=== PATIENT | female | born 1945 | race African-American/Black ===

== ENCOUNTER 2017-04-27 08:22 | Inpatient (IN) ==
[2017-04-27] MEDS ORDERED: NALOXONE 0.4 MG/ML VIAL IV STA (08:50)
--- NOTE | 2017-04-27 09:06 | Emergency Department Note ---
Arsalan Sams Mantricia, am scribing for, and in the presence of, Jus Cadet MD 08:57. Chichi Sams James D, MD, personally performed the services described in this documentation, ascribed by Mandie Arriaza in my presence, and it is both accurate and complete [id number] . Arrival - Arrival Chief Complaint: Altered Mental Status ED Nursing Triage Note: PER FAMILY PT JUST SLEEPING ALOT AND TALKING OUT OF HER HEAD, PT HAS ENDOMETRIAL CANCER WITH METS, SEEN YESTERDAY FOR RECTAL PAIN, FAMILY MEMBERS GIVING PT PAIN MEDS, PT HAS NORCO 10MG, FAMILY GIVING TWO AT A TIME. PT AWAKE, DROWSY, ANSWERS SOME QUESTIONS APPROPRIATELY. PT DENIES HAVING PAIN. Mode of Arrival: Stretcher Limitations: No Limitations Source: Family, RN Notes Reviewed Time Seen by Provider: 04/27/17 08:43 - History of Present Illness HPI Narrative: Pt is a 71 y/o black female carried to ED by EMS with c/o AMS that onset Wednesday evening. Pt was previously prescribed Northwood. Daughter states that pt was seen yesterday for hemorrhoids and she gave pt two of the previously prescribed Northwood 10mg for her pain. She states that since then, pt has been talking out her head and this has never happened before. Pt has a PMHx of endometrial cancer , HTN, and DM. Daughter reports that pt goes through parencentesis every two weeks. Pt is uncooperative at time of exam. No other complaints are reported to ED. P Onset (ago): day(s) Consistency: constant Severity: mild Allergies/Adverse Reactions: Allergies Allergy/AdvReac Type Severity Reaction Status Date / Time Penicillins Allergy Mild RASH Verified 04/27/17 08:38 Home Medications: Home Medications Medication Instructions Recorded Confirmed Type Lisinopril [Prinivil] 10 mg PO DAILY 03/19/15 04/26/17 History glyBURIDE/METFORMIN 5-500 1 tablet PO BID W/MEALS PRN 03/19/15 04/26/17 History [Glucovance 5-500] Anastrozole 1 mg PO DAILY 10/23/16 04/26/17 History Furosemide Tab [Lasix Tab] 80 mg PO DAILY 10/23/16 04/26/17 History HYDROcodone/ACETAMIN 10-325 [Northwood 1 tablet PO Q4H PRN 10/23/16 04/26/17 History 10-325] Nebivolol HCl [Bystolic] 2.5 mg PO DAILY 12/20/16 04/26/17 History Hydrocortisone [Hydrocortisone 100 mg RECTAL DAILY 04/26/17 04/26/17 History Enema] Pramoxine/Hc Rectal Foam 1 applic RECTAL TID #10 gm 04/26/17 Rx [Proctofoam HC Rectal Foam] Review of System - Review of System 12 point system: reviewed and no additional remarkable complaints except as stated - Review of System Constitutional: Present: other (AMS) Eyes: Absent: discharge, pain Head/Ears/Nose/Throat: Absent: earache, epistaxis Respiratory: Absent: cough, respiratory distress, wheezing Cardiovascular: Absent: chest pain, palpitations Gastrointestinal: Absent: abdominal pain, nausea, vomiting, diarrhea Genitourinary female: Absent: abnormal menses, dysuria Musculoskeletal: Absent: arm pain, back pain, leg pain, neck pain Skin: Absent: rash, lesions Neurological: Absent: headache, weakness Psychiatric: Absent: anxiety, depression Medical,Surgical,& Family Hx - Medical History Cardio: History of: CHF, Hypertension, Cardiovascular Problems Psychological: History of: Depression Neurology: No history of: Seizures HEENT: History of: Eye Problem (GLASSES), HEENT Problems (SINUS) Endocrine: History of: Diabetes Mellitus (NIDDM) Respiratory: History of: Respiratory Problems (heart failure) Gastrointestinal: History of: Diverticulitis/ Diverticulosis, GERD, Hemorrhoids , Liver Problems, 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 CORADO), Miscellaneous Medical Problems (MEDIPORT TO BE PLACED 03/20/15 RT) - Surgical History Cardiac Surgeries: Patient Denies: Femoral-Popliteal Bypass Graft, Cardiac Catheterization, Cardiac Surgery, Carotid Endarterectomy, Internal Defibrillator, Vascular Access Devices Thoracic Surgeries: Patient denies;: Lobectomy HEENT Surgeries: Patient denies: Carotid Endarterectomy, Eye Surgery, Tonsilectomy & Adenoidectomy Abdominal Surgeries: Surgical HX of: Abdominal Surgery (PARTIAL REMOVAL SMALL INTESTINES 02/12/15), Colonoscopy Patient denies: Splenectomy Reproductive Surgeries: Surgical HX of;: Hysterectomy (FEBRUARY 2012), Tubal Ligation - Family History Family History: Reports;: Family Cancer (BROTHER), Family Diabetes (MOTHER/ FATHER), Family Hypertension (PARENTS) - Social History Smoking Status: Unknown if ever smoked Exam Vital Signs: Vital Signs Temperature 98.1 F 04/27/17 09:11 Pulse Rate 88 04/27/17 09:11 Respiratory Rate 14 04/27/17 09:11 Blood Pressure 102/46 04/27/17 09:11 O2 Sat by Pulse Oximetry 100 04/27/17 08:24 - General Exam limited due to: uncooperative General appearance: alert, in no apparent distress - Head Head exam: Present: atraumatic, normocephalic, normal inspection - Eye Eye exam: Present: normal appearance, PERRL, EOMI - ENT ENT exam: Present: normal exam, normal oropharynx, mucous membranes moist, TM's normal bilaterally, normal external ear exam - Neck Neck exam: Present: normal inspection, full ROM, trachea midline. Absent: tenderness - Chest Chest inspection: Present: normal inspection, symmetric chest wall rise. Absent : tenderness - Respiratory Respiratory exam: Present: normal lung sounds bilaterally - Cardiovascular Cardiovascular exam: Present: regular rate, normal rhythm, normal heart sounds - Abdominal Exam Abdominal exam: Present: soft, normal bowel sounds. Absent: distention, tenderness, guarding, rebound - Extremities Exam Extremities exam: Present: normal inspection, full ROM, normal capillary refill , pedal edema. Absent: tenderness - Back Exam Back exam: Present: normal inspection, full ROM. Absent: tenderness - Neurological Exam Neurological exam: Present: oriented X3, CN II-XII intact, normal gait, reflexes normal - Psychiatric Psychiatric exam: Present: normal affect, normal mood - Skin Skin exam: Present: warm, dry, intact, normal color Course - Consultations Consultation #1: Discussed with hospitalist. Patient will be admitted to their service. Time: 10:15 Results - Labs CBC & BMP: 04/27/17 09:07 04/27/17 09:07 Lab Results: I have reviewed the patients labs Labs: Laboratory Tests 04/27/17 04/27/17 04/27/17 09:07 09:07 09:07 WBC 7.9 Hgb 8.3 L Hct 25.5 L Plt Count 329 Sodium 141 Potassium 4.0 Chloride 108 H Carbon Dioxide 20 L Anion Gap 17.0 H BUN 60 H Creatinine 2.60 H BUN/Creatinine Ratio 23.00 H Calcium 7.4 L Total Bilirubin 2.90 H AST 110 H ALT 70 H Alkaline Phosphatase 991 H Ammonia 115 H Total Protein 5.1 L Albumin 1.9 L Globulin 3.2 Albumin/Globulin Ratio 0.5 L Urine pH 5.0 Ur Specific Ida 1.011 Urine RBC 2 Urine WBC 1 Urine Opiates Screen Ur Barbiturates Screen Ur Phencyclidine Scrn U Amphetamine/Methamph U Benzodiazepines Scrn U Cocaine Metab Screen U Cannabinoids Screen 04/27/17 09:07 WBC Hgb Hct Plt Count Sodium Potassium Chloride Carbon Dioxide Anion Gap BUN Creatinine BUN/Creatinine Ratio Calcium Total Bilirubin AST ALT Alkaline Phosphatase Ammonia Total Protein Albumin Globulin Albumin/Globulin Ratio Urine pH Ur Specific Ida Urine RBC Urine WBC Urine Opiates Screen Positive H Ur Barbiturates Screen Negative Ur Phencyclidine Scrn Negative U Amphetamine/Methamph Negative U Benzodiazepines Scrn Negative U Cocaine Metab Screen Negative U Cannabinoids Screen Negative - Diagnostic Findings Procedure: CT: image reviewed by me, report reviewed by me (CT head: No acute intracranial lesion or hemorrhage.) Disposition Clinical Impression: Hepatic encephalopathy Case discussed with: patient Disposition: Still a Patient Condition: Stable Time of Disposition: 10:10
[2017-04-27] MEDS ORDERED: NALOXONE 0.4 MG/ML VIAL ONE (09:13)
[2017-04-27 09:22] LABS: Apearance,Urine CLEAR (Clear); Bacteria,Urine Occasional /HPF (Few); Bilirubin,Urine Negative (Negative); Blood, Urine Negative (Negative); Eosinophils % 0.3 % (0.00-10.9); Glucose,Urine (UA) Negative (Negative); Hematocrit 25.5 VOL% (35.7-47.0); Hemoglobin 8.3 GM/DL (12.0-16.0); Hyaline Casts,Urine 6 /LPF (0-3); Immature Granulocytes % 1.3 %; Ketones,Urine Negative (Negative); Lymphocytes # 1.1 10*3/uL (1.4-4.0); Lymphocytes % 14.5 % (21.3-54.2); Mean Corpuscular HGB Conc 32.5 GM/DL (32-36); Mean Corpuscular Hemoglobin 24 PG (27-34); Mean Corpuscular Volume 74.3 FL (87-102); Mean Platelet Volume 9.1 FL (9.6-12.0); Monocytes # 0.7 10*3/uL (0.11-0.8); Mucus,Urine Occasional /LPF (Occasional); Neutrophils # 5.9 10*3/uL (1.4-7.4); Neutrophils % 74.9 % (38.7-73.9); Nitrite,Urine Negative (Negative); Platelet Count 329 T/CUMM (130-400); Protein,Urine Negative; RBC,Urine 2 /HPF (0-4); Red Blood Count 3.43 MC/CUMM (3.8-5.5); Red Cell Distribution Width 23.5 % (9.3-17.3); Squamous Epithelial Cell,Urine Occasional /HPF (0-10); Urine Color Yellow (Yellow); Urine Specific Gravity 1.011 (1.001-1.035); WBC,Urine 1 /HPF (0-6); White Blood Count 7.9 T/CUMM (4-12)
[2017-04-27 09:29] LABS: Barbiturates Screen,Urine Negative (Negative); Benzodiazepines Screen,Urine Negative (Negative); Cannabinoid Screen,Urine Negative (Negative); Opiate Screen,Urine Positive (Negative); Phencyclidine Screen,Urine Negative (Negative)
--- NOTE | 2017-04-27 09:47 | CT Report ---
CT head/brain wo con Indication: Altered level of consciousness Comparison: None Technique: Multiple axial tomographic images of the brain were obtained without the use of intravenous contrast. Findings: Midline structures are nondisplaced. Moderate global volume loss. Mild periventricular and subcortical hypoattenuation noted which is nonspecific but consistent with chronic microvascular ischemic change. There is no evidence of acute intracranial hemorrhage or hydrocephalus. Atherosclerotic calcifications demonstrated. Senescent mineralization of the right lentiform nucleus, unchanged. The visualized paranasal sinuses and bilateral mastoid air cells are clear. Study somewhat limited secondary to motion. IMPRESSION: Limited exam without convincing CT evidence of acute intracranial abnormality. The CT exam was performed using one or more of the following dose reduction techniques: Automated exposure control, adjustment of the mA and/or kV according to patient size, or use of iterative reconstruction technique. PROCEDURE INTERPRETED AT [facility] DEPARTMENT OF RADIOLOGY Final Report Signed by: Dr Cj Menon
[2017-04-27 09:58] LABS: Albumin 1.9 G/DL (3.4-5.0); Bilirubin,Total 2.9 MG/DL (0.2-1.0); Calcium 7.4 MG/DL (8.5-10.1); Osmolality,Calculated 297.3 MOS/KG (273-304); Total Protein 5.1 G/DL (6.4-8.3)
[2017-04-27 10:03] LABS: Acanthocytes 1+; Hypochromasia 2+; Microcytosis 1+; Target Cells 1+
[2017-04-27] MEDS ORDERED: MORPHINE 2 MG/1 ML SYRINGE IV PRN (10:53)
[2017-04-27] MEDS ORDERED: ONDANSETRON 4 MG/2 ML VIAL IV PRN (10:53)
[2017-04-27] MEDS ORDERED: LACTULOSE 20 GM/30 ML UDCUP PO SCH (11:00)
[2017-04-27] MEDS ORDERED: GLUCAGON 1 MG VIAL IM PRN (11:01)
[2017-04-27] MEDS ORDERED: DEXTROSE 50% 25 GM/50 ML VIAL IV PRN (11:01)
--- NOTE | 2017-04-27 11:02 | Hospitalist History & Physical ---
<Liliana Kennedy - Last Filed: 04/27/17 10:59> Assessment and Plan - Time spent with patient Time spent with patient: Greater than 30 minutes (1) Hypotension Status: Acute Assessment and plan: 71-year-old -Filipino female with history of hypertension, diabetes, endometrial cancer with metastases to the liver and colon admitted by the hospitalist service with hepatic encephalopathy 2 days. Patient is lethargic and agitated when awakened. Will admit her to the oncology floor per Dr. Torres. We will give her lactulose for elevated ammonia levels, make her n.p.o. until she awakens fully, will gently hydrate her for her dehydration but will have to watch her fluid levels due to her CHF. Am holding her pain medicines and her p.o. medicines until she fully awakens. She is hypotensive at this time so I am holding her blood pressure medicines as well. Will hold her Lasix as well until her kidney function improves from her dehydration. Also put her on sliding scale insulin for her diabetes management. Will consult social studies department chair for possible hospice and/or home health discussion with family. This is all been discussed with Dr. Torres. She will see and examined patient and further recommendations to follow. Current Visit: Yes (2) Endometrial cancer with metastases Status: Acute Current Visit: Yes (3) Ascites of liver Status: Acute Current Visit: Yes (4) Acute renal injury due to hypovolemia Status: Acute Current Visit: Yes (5) Elevated liver enzymes Status: Acute Current Visit: Yes (6) Patient is Anglican Status: Acute Current Visit: No (7) Anemia Status: Acute Current Visit: No (8) Diabetes mellitus Status: Acute Current Visit: No (9) Hemorrhoids Status: Acute Current Visit: No (10) Hepatic encephalopathy Status: Acute Current Visit: Yes History of Present Illness Chief complaint: Altered mental status History of present illness: Ms. Aparicio is a 71 year old Anglican female with history of diastolic heart failure, diabetes, endometrial cancer with metastases to the liver and colon, and hypertension presenting to the ED by her daughters with a 2 day history of progressive confusion. Daughter states she started acting sleepy and talking out of her head starting on Wednesday. She had complaints of pain from her hemorrhoids and she was given some Iliff yesterday around 1:00 and they state she has not been the same since. She received Narcan in the ED which did nothing to help with her mental status. Daughter states she normally walks with a walker, cooks and cleans for herself and is normally conversive. She has not eaten or drank anything since Wednesday morning. She is undergoing chemo with p.o. medicines. Dr. Corado follows her monthly and she has a [employer] oncologist in [place] that follows her as well. Dr. Garcia's nurse practitioner is her PCP. She has not seen a pharmacy consultant. Upon exam patient is sleepy and gets agitated when awakened. She will not answer questions and will not follow commands. Daughter states this is highly unusual for her. Her blood pressure is low with systolic in the 70s and her heart rate is within normal limits. Harrison was placed in the ED and her urine is dark with low urine output. Her white count is normal, H&H 8.3/25.5, platelets are normal, creatinine is elevated at 2.6. Her creatinine was normal with her last admission in November. Patient's liver enzymes are elevated with her bilirubin at 2.9, alkaline phosphatase elevated at 991, her ammonia level is 115, and her UA is negative for infection. These were all normal in November. She does have positive opiates in her toxicology screen but this is normal for her prescription Iliff from yesterday. Patient does undergo paracentesis about every 2 weeks by interventional radiology. Her last one was done on 04/22/[address] Duckworth obtained a total of 6800 cc of serosanguineous ascites. After discussion with Dr. Cadet and Dr. Torres, it was agreed patient would be admitted for further evaluation and treatment. Home Medications Medication Instructions Recorded Confirmed Type RX: Lisinopril [Prinivil] 10 mg PO DAILY 03/19/15 04/27/17 History RX: glyBURIDE/METFORMIN 5-500 1 tablet PO BID W/MEALS PRN 03/19/15 04/27/17 History [Glucovance 5-500] RX: Anastrozole 1 mg PO DAILY 10/23/16 04/27/17 History RX: Furosemide Tab [Lasix Tab] 80 mg PO DAILY 10/23/16 04/27/17 History RX: HYDROcodone/ACETAMIN 10-325 1 tablet PO Q4H PRN 10/23/16 04/27/17 History [Iliff 10-325] RX: Nebivolol HCl [Bystolic] 2.5 mg PO DAILY 12/20/16 04/27/17 History Hydrocortisone [Hydrocortisone 100 mg RECTAL DAILY 04/26/17 04/27/17 History Enema] Pramoxine/Hc Rectal Foam 1 applic RECTAL TID #10 gm 04/26/17 04/27/17 Rx [Proctofoam HC Rectal Foam] Allergies Allergy/AdvReac Type Severity Reaction Status Date / Time Penicillins Allergy Mild RASH Verified 04/27/17 08:38 Medical,Surgical,& Family Hx - Medical History Cardio: History of: CHF, Hypertension, Cardiovascular Problems Psychological: History of: Depression Neurology: No history of: Seizures HEENT: History of: Eye Problem (GLASSES), HEENT Problems (SINUS) Endocrine: History of: Diabetes Mellitus (NIDDM) Respiratory: History of: Respiratory Problems (heart failure) Gastrointestinal: History of: Diverticulitis/ Diverticulosis, GERD, Hemorrhoids , Liver Problems, Gastrointestinal Cancer (RECURRENCE FROM UTERINE CA) Musculoskeletal: History of: Musculoskeletal Problems (ARTHRITIS) Hematology: History of: Anemia Comment Only: Blood Transfusion Reaction (JEHOVAH WITNESS) Reproductive: History of: Reproductive Cancer (2011) Other: History of: Cancer (TO START CHEMO ONCE MEDIPORT PLACED-DR. CORADO), Miscellaneous Medical Problems (MEDIPORT TO BE PLACED 03/20/15 RT) - Surgical History Cardiac Surgeries: Patient Denies: Femoral-Popliteal Bypass Graft, Cardiac Catheterization, Cardiac Surgery, Carotid Endarterectomy, Internal Defibrillator, Vascular Access Devices Thoracic Surgeries: Patient denies;: Lobectomy HEENT Surgeries: Patient denies: Carotid Endarterectomy, Eye Surgery, Tonsilectomy & Adenoidectomy Abdominal Surgeries: Surgical HX of: Abdominal Surgery (PARTIAL REMOVAL SMALL INTESTINES 02/12/15), Colonoscopy Patient denies: Splenectomy Reproductive Surgeries: Surgical HX of;: Hysterectomy (FEBRUARY 2012), Tubal Ligation - Family History Family History: Reports;: Family Cancer (BROTHER), Family Diabetes (MOTHER/ FATHER), Family Hypertension (PARENTS) - Social History Smoking Status: Never smoker Frequency of Alcohol Use: None Type of Drug Use: None Marital Status: Single Lives With:: Children Functional capacity: uses cane/walker ROS unobtainable: due to encephalopathy Exam - Constitutional Vitals: Period Temp Pulse Resp BP Sys/Golden Pulse Ox Last 24 Hr 98.1 F-98.1 F 88-88 14-14 102-102/46-46 100 Exam: Constitutional System: No distress. [No] tremulousness. Head: Normocephalic, atraumatic. Ears, Nose and Throat System: No evidence of Otitis or Mastoiditis. No epistaxis or discharge Eyes System: Pupils equal, round, and reactive. Extraocular muscles intact. Neck: Supple, without adenopathy, [No] jugular venous distention. No thyromegaly , neck mass, or prior surgery apparent. Respiratory System: Chest [clear] to auscultation. Cardiovascular System: Heart with [regular] rate and rhythm. [No] murmur. GI System: Abdomen [soft], [non]tender. [Normo]active bowel sounds present. Musculoskeletal System: limbs with +3 pedal edema. Unable to obtain distal pulses due to edema. Neurological System: [No discernable] sensory deficit. [No] aphasia Psychiatric System: Conversation is limited. Patient is agitated when awakened Results - Labs CBC & BMP: 04/27/17 09:07 04/27/17 09:07 Lab Results: I have reviewed the past 24 hour labs - Diagnostic Findings Procedure: CT: report reviewed by me (Head CT was limited but there is no evidence of acute intracranial abnormality) <Seamus Torres - Last Filed: 04/27/17 14:04> Assessment and Plan - Time spent with patient Time spent with patient: Less than 30 minutes History of Present Illness History of present illness: Patient seen and examined independently of JUSTIN Kennedy, agree with history, assessment and plan as documented. 71 y/o AAF with endometrial cancer with mets to liver and colon presents with encephalopathy. Per records she is taking anastrozole. Family reports that she has not eaten since Wednesday. In the ED found to have elevated ammonia with elevated liver enzymes. Possible that this is progression of disease but will work up her liver disease for other causes. Will check acetaminophen, hepatitis panel and liver ultrasound. Will start lactulose. Patient also with JG, creatinine was normal in November. Very possible that this is due to dehydration, but cannot quite rule out hepatorenal syndrome. Possible history of chf, will order echo. Will hydrate gently for now. Will consult oncology for any possible assistance. Exam - Constitutional Vitals: Period Temp Pulse Resp BP Sys/Golden Pulse Ox Last 24 Hr 98.1 F-98.1 F 88-88 14-14 102-102/46-46 100 Results - Labs CBC & BMP: 04/27/17 09:07 04/27/17 09:07
[2017-04-27] MEDS ORDERED: HYDROCORTISONE ENEMA 100 MG/60 ML BOTTLE RECTAL SCH (12:27)
[2017-04-27] MEDS: PANTOPRAZOLE 40 MG VIAL IV SCH (13:35)
[2017-04-27] MEDS: SODIUM CHLORIDE 0.9% 1,000 ML IV SCH ×2 (13:36→20:00)
[2017-04-27] MEDS: ENOXAPARIN 30 MG/0.3 ML SYRINGE SUBCUT SCH (13:36)
--- NOTE | 2017-04-27 14:53 | Ultrasound Report ---
US liver Indication: Liver disease. No other history provided. Comparison: None. Technique: Using transcutaneous probe, ultrasound imaging of the right upper quadrant was performed. Ultrasound images were captured and stored. Imaged structures include the liver, gallbladder, pancreas, right kidney, aorta, and inferior vena cava. Findings: Moderate amount ascites is demonstrated. There appears to be color flow within interrogated portal and hepatic venous systems. The liver appears small in size and demonstrates a nodular margin as well as heterogeneous pattern of echotexture. Right kidney measures 10.1 cm in craniocaudal dimension. There are structures imaged they have central hypoechoic echotexture with measurements up to 9.1 cm total size and surrounding wall. These possibly represent fluid-filled loops of bowel as there is some hypoechoic annular echotexture within the imaged wall. Pancreas is not identified. Aorta and inferior vena cava are not identified. Gallbladder is not identified. Impression: 1. Liver is small in size with sclerotic features and possible cavernous transformation of the portal vein. Some presence of color flow is suggested. 2. Masses within or posterior to the liver cannot be excluded. CT liver mass protocol is recommended for further evaluation. 3. Moderate to large amount of ascites. 04/27/2017 2:38 PM PROCEDURE INTERPRETED AT [facility] DEPARTMENT OF RADIOLOGY Final Report Signed by: Dr. Rommel Geronimo
[2017-04-27 15:01] LABS: % Iron Saturation 33.8 % (18-50); Ferritin 1987.1 ng/ml (8-252)
[2017-04-27] MEDS: LACTULOSE 160 GM/240 ML BOTTLE RECTAL SCH ×3 (15:23→22:26)
[2017-04-27 15:48] LABS: Hepatitis A Ab IgM Quant 0.03 Index; Hepatitis A Ab IgM Result Negative (Negative); Hepatitis B Core IgM Quant 0.18 Index; Hepatitis B Core IgM Result Negative (Negative); Hepatitis B Surface Ag Quant < 0.10 Index; Hepatitis B Surface Ag Result Negative (Negative); Hepatitis C Virus Ab Quant 0.27 Index; Hepatitis C Virus Ab Result Negative (Negative)
[2017-04-27 15:56] LABS: INR 1.1; PT Patient Result 11.3 SECS
[2017-04-27] MEDS: INSULIN LISPRO 100 UNIT/ML SUBCUT SCH (15:59)
[2017-04-27] MEDS: PRAMOXINE/HYDROCORTISONE RECTAL FOAM 10 GM CAN RECTAL SCH ×2 (16:02→22:49)
--- NOTE | 2017-04-27 17:07 | ECHO Report ---
Ron Aparicio 04/27/2017 Exam Date: 14:26 Referring Physician: Lyssa Seay Technologist: ALLYSSA Age: 71 Ht (in): 66 Wt (lb): 207 FExam Location: [facility] Gender: Echo [id number]: colon, Confusion, Ascites of liver, Acute liver injury, Hepatic encephalopathy, Lethargic, Agitated, Anemia, NIDDM, Elevated liver enzymes BP: 156 / 62 HR: 78 SinusRhythm: goodTechnical Quality: IMPRESSIONS Left ventricular ejection fraction is estimated at 65 %. There is no regional wall motion abnormality. Grade I diastolic dysfunction. Tricuspid regurgitation velocities suggest a RVSP of 45 mmHg. MEASUREMENTS (Male / Female) Normal Values 2D ECHO LV Diastolic Diameter PLAX 4.3 cm 4.2 - 5.9 / 3.9 - 5.3 cm LV Systolic Diameter PLAX 2.8 cm LV Fractional Shortening PLAX 34.5 % IVS Diastolic Thickness 1.0 cm 0.6 - 1.0 / 0.6 - 0.9 cm LVPW Diastolic Thickness 1.0 cm 0.6 - 1.0 / 0.6 - 0.9 cm RV Internal Dim ED PLAX 2.9 cm Aortic Root Diameter 2.6 cm LA Systolic Diameter LX 4.6 cm 3.0 - 4.0 / 2.7 - 3.8 cm DOPPLER TR Peak Velocity 334.0 cm/s TR Peak Gradient 44.6 mmHg FINDINGS Left Ventricle Normal left ventricular cavity size. Normal left ventricular wall thickness. Left ventricular ejection fraction is estimated at 65 %. There is no regional wall motion abnormality. Grade I diastolic dysfunction. Right Ventricle The right ventricle is normal in size and function. Right Atrium The right atrium is mildly enlarged. Left Atrium The left atrium is mildly enlarged. Mitral Valve Morphologically normal mitral valve. Trace to mild mitral valve regurgitation. Aortic Valve Mild aortic valve sclerosis. No aortic valve stenosis. Trace aortic valve regurgitation. Tricuspid Valve Morphologically normal tricuspid valve. Trace to mild tricuspid valve regurgitation. Tricuspid regurgitation velocities suggest a RVSP of 45 mmHg. Pulmonic Valve Morphologically normal pulmonic valve. Trace pulmonary valve regurgitation. Pericardium Normal pericardium without effusion. Aorta Normal ascending aorta dimension. Brittney Miranda (Electronically Signed) 27 Apr 2017 17:06Final Date:
[2017-04-27] MEDS: LACTULOSE 20 GM/30 ML UDCUP PO PRN (18:55)
[2017-04-27] MEDS: HYDROCORTISONE 2.5% RECTAL CREAM 30 GM TUBE TOP PRN (23:00)
[2017-04-28] MEDS: SODIUM CHLORIDE 0.9% 1,000 ML IV SCH ×3 (04:00→23:55)
[2017-04-28] MEDS: LACTULOSE 160 GM/240 ML BOTTLE RECTAL SCH ×6 (04:00→22:02)
[2017-04-28] MEDS: INSULIN LISPRO 100 UNIT/ML SUBCUT SCH ×2 (08:22→17:06)
--- NOTE | 2017-04-28 09:32 | Gastrointestinal Consult Note ---
<ConstantinegirmaMelinda Jennifer - Last Filed: 04/28/17 09:21> Assessment and Plan (1) Elevated liver enzymes Status: Acute Assessment and plan: 04/28-changes in baseline mental status 3 days ago with increased agitation and somnolence. History of endometrial cancer with metastasis to liver per history. Findings of elevated LFTs and ammonia level. Negative hepatitis panel. Liver ultrasound findings noted. Plan an addendum to followed by Dr. Vasquez. Current Visit: Yes History of Present Illness Chief complaint: Altered mental status History of present illness: Ms. Aparicio is a 71 year old female who was admitted to the hospital on yesterday with reports of altered mental status. Patient is unable to provide any history however family is at bedside and assist in history taking. Information also obtained from chart review. Patient has a prior history of heart failure, diabetes mellitus, and hypertension. Patient is reported to be in her usual state of health, in which she was reported to ambulate independently, cook and clean for herself on a regular basis, until Wednesday afternoon when family noticed that she was becoming more somnolent and somewhat confused from her baseline. Patient has been complaining of pain related to her hemorrhoids and the family gave her 210 mg Normangee does for the pain at that time. Does state that several hours after giving her the medication she began becoming more confused and agitated. She was also noted to be increasingly somnolent and difficult to arouse at times. She has a history of endometrial cancer which went into remission in the past however she had a reoccurrence with also findings of liver metastasis per daughter. Patient is followed by Dr. Pa in [place] for this and takes oral chemotherapy. Family states that patient has been noted to have some weight loss over the last several weeks to months however they are uncertain as to how much. On admission, patient was found to be hypotensive as well as with elevated liver enzymes and ammonia level. Patient was last seen in November by Dr. Vasquez after admission far GI bleeding. At that time her liver enzymes were noted to be unremarkable. 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 She also had a small bowel follow-through with findings of ascites. 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 Patient's last paracentesis was noted to be last week with 6800 cc removed. She is noted to have had a total of 4 paracentesis since January of this year. Ammonia level on admission noted at 115, bilirubin 2.9, AST 110, ALT 70, alkaline phosphatase 91. Iron studies also noted with iron 52, TIBC 154 , saturation 33.8, and ferritin 1987. INR is 1.1. Hemoglobin 8.3. Hepatitis panel is negative. Patient is a Religion. Home Medications Medication Instructions Recorded Confirmed Type Anastrozole 1 mg PO DAILY 10/23/16 04/27/17 History Furosemide Tab [Lasix Tab] 80 mg PO DAILY 10/23/16 04/27/17 History HYDROcodone/ACETAMIN 10-325 [Normangee 1 - 2 tablet PO Q4H PRN 10/23/16 04/27/17 History 10-325] Nebivolol HCl [Bystolic] 2.5 mg PO DAILY 12/20/16 04/27/17 History Pramoxine/Hc Rectal Foam 1 applic RECTAL TID #10 gm 04/26/17 04/27/17 Rx [Proctofoam HC Rectal Foam] Allergies Allergy/AdvReac Type Severity Reaction Status Date / Time Penicillins Allergy Mild RASH Verified 04/27/17 08:38 Medical,Surgical,& Family Hx - Medical History Cardio: History of: CHF, Hypertension, Cardiovascular Problems Psychological: History of: Depression Neurology: No history of: Seizures HEENT: History of: Eye Problem (GLASSES), HEENT Problems (SINUS) Endocrine: History of: Diabetes Mellitus (NIDDM) Respiratory: History of: Respiratory Problems (heart failure) Gastrointestinal: History of: Diverticulitis/ Diverticulosis, GERD, Hemorrhoids , Liver Problems, 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 PA), Miscellaneous Medical Problems (MEDIPORT TO BE PLACED 03/20/15 RT) - Surgical History Cardiac Surgeries: Patient Denies: Femoral-Popliteal Bypass Graft, Cardiac Catheterization, Cardiac Surgery, Carotid Endarterectomy, Internal Defibrillator, Vascular Access Devices Thoracic Surgeries: Patient denies;: Lobectomy HEENT Surgeries: Patient denies: Carotid Endarterectomy, Eye Surgery, Tonsilectomy & Adenoidectomy Abdominal Surgeries: Surgical HX of: Abdominal Surgery (PARTIAL REMOVAL SMALL INTESTINES 02/12/15), Colonoscopy Patient denies: Splenectomy Reproductive Surgeries: Surgical HX of;: Hysterectomy (FEBRUARY 2012), Tubal Ligation - Family History Family History: Reports;: Family Cancer (BROTHER), Family Diabetes (MOTHER/ FATHER), Family Hypertension (PARENTS) - Social History Smoking Status: Never smoker Frequency of Alcohol Use: None Type of Drug Use: None ROS unobtainable: due to mental status - Constitutional Constitutional: Present: weight loss Exam - Constitutional Vitals: Period Temp Pulse Resp BP Sys/Golden Pulse Ox Last 24 Hr 96.8 F-98.2 F 72-96 18-22 104-156/51-68 93-100 General appearance: normal weight, no acute distress - Head Head exam: Present: normal inspection, normocephalic - Eye Eye exam: Present: other (Lids and conjunctive are unremarkable). Absent: scleral icterus - ENT ENT exam: Present: normal exam, normal oropharynx - Neck Neck exam: Present: normal inspection - Respiratory Respiratory exam: Present: clear to auscultation bilaterally. Absent: rales, rhonchi, wheezes - Cardiovascular Cardiovascular exam: Present: regular rate and rhythm. Absent: diastolic murmur , JVD, systolic murmur - GI/Abdominal GI/Abdominal exam: Present: normal bowel sounds, ascites, soft. Absent: distended, mass, organomegaly, tenderness - Extremities Exam Extremities exam: Present: normal inspection, full ROM - Back Exam Back exam: Present: normal inspection - Neurological Exam Neurological exam: Present: alert, oriented X3 - Psychiatric Psychiatric exam: Present: normal affect, normal mood - Skin Skin exam: Present: normal color, warm, dry Results - Labs CBC & BMP: 04/27/17 09:07 04/27/17 09:07 Lab Results: I have reviewed the past 24 hour labs <Lv Vasquez - Last Filed: 04/28/17 22:27> History of Present Illness History of present illness: Ms. Aparicio is a 71 year old female Exam - Constitutional Vitals: Period Temp Pulse Resp BP Sys/Oglden Pulse Ox Last 24 Hr 97.4 F-98.3 F 72-82 15-22 85-122/51-68 93-100 Results - Labs CBC & BMP: 04/28/17 13:58 04/28/17 14:51
--- NOTE | 2017-04-28 09:54 | Interventional Radiology Rpt ---
IR inject cv access device Clinical Information: Check MEDIPORT PATENCY Total fluoroscopy time: 17 seconds Comparison: None available Findings: Right subclavian Mediport is noted in position. The catheter tip terminates near the expected location of cavoatrial junction. Initial contrast injection demonstrates filling of the Mediport reservoir as expected. Continued injection demonstrates filling of the catheter with retrograde filling of the prominent fibrin sheath about the catheter tip. Impression: Prominent fibrin sheath about the catheter tip, which otherwise remains in position and functional. Consider TPA lysis of the fibrin sheath versus catheter based stripping. PROCEDURE INTERPRETED AT [facility] DEPARTMENT OF RADIOLOGY Final Report Signed by: Beau Miller
[2017-04-28] MEDS: PANTOPRAZOLE 40 MG VIAL IV SCH (10:33)
[2017-04-28] MEDS: PRAMOXINE/HYDROCORTISONE RECTAL FOAM 10 GM CAN RECTAL SCH ×3 (10:35→22:02)
[2017-04-28] MEDS ORDERED: ALTEPLASE 2 MG VIAL INTRACATH ONE (11:41)
--- NOTE | 2017-04-28 11:52 | Hospitalist Progress Note ---
Assessment and Plan (1) Acute renal failure Status: Acute Assessment and plan: Most likely secondary to dehydration IV fluids F/u bmp Current Visit: Yes (2) Diabetes mellitus Status: Acute Assessment and plan: SSI Current Visit: No (3) Hepatic encephalopathy Status: Acute Assessment and plan: Lactulose Endometrial cancer with liver and colon mets GI consulted Liver work-up for other causes underway Current Visit: Yes (4) Endometrial cancer with metastases Status: Acute Assessment and plan: Oncology consulted Current Visit: Yes Hospitalist: Subjective Interval history: No acute events overnight. Daughters report that patient woke up more yesterday , talked to them. This morning patient is more awake than admission but still sleepy and confused. No labs yet this morning. Difficulty accessing mediport. Exam - Constitutional Vitals: Period Temp Pulse Resp BP Sys/Golden Pulse Ox Last 24 Hr 96.8 F-98.2 F 72-96 18-22 85-156/51-68 93-100 General appearance: over weight - Head Head exam: Present: normocephalic, atraumatic - Eye Eye exam: Present: EOMI Pupils: Present: ALTON - ENT ENT exam: Present: normal exam - Neck Neck exam: Present: normal inspection - Respiratory Respiratory exam: Present: clear to auscultation bilaterally. Absent: rhonchi, wheezes - Cardiovascular Cardiovascular exam: Present: regular rate and rhythm - GI/Abdominal GI/Abdominal exam: Present: normal bowel sounds, soft. Absent: tenderness, rebound - Extremities Exam Extremities exam: Present: normal inspection - Back Exam Back exam: Present: normal inspection - Neurological Exam Neurological exam: Present: alert, altered - Psychiatric Psychiatric exam: Present: normal affect, normal mood - Skin Skin exam: Present: warm, intact Results - Labs CBC & BMP: 04/27/17 09:07 04/27/17 09:07
[2017-04-28] MEDS: ENOXAPARIN 30 MG/0.3 ML SYRINGE SUBCUT SCH (14:05)
[2017-04-28 14:36] LABS: Basophils % 0.1 % (0.0-0.8); Eosinophils % 0.4 % (0.00-10.9); Hematocrit 21.1 VOL% (35.7-47.0); Hemoglobin 6.9 GM/DL (12.0-16.0); Immature Granulocytes % 0.9 %; Immature Granulocytes Absolute 0.07 #; Lymphocytes # 0.8 10*3/uL (1.4-4.0); Lymphocytes % 10.9 % (21.3-54.2); Mean Corpuscular HGB Conc 32.7 GM/DL (32-36); Mean Corpuscular Hemoglobin 25 PG (27-34); Mean Corpuscular Volume 75.9 FL (87-102); Mean Platelet Volume 9.2 FL (9.6-12.0); Monocytes # 0.6 10*3/uL (0.11-0.8); Monocytes % 8.3 % (1.7-12.7); Neutrophils % 79.4 % (38.7-73.9); Platelet Count 354 T/CUMM (130-400); Red Blood Count 2.78 MC/CUMM (3.8-5.5); White Blood Count 7.5 T/CUMM (4-12)
[2017-04-28 15:07] LABS: Albumin 1.8 G/DL (3.4-5.0); Bilirubin,Total 3.8 MG/DL (0.2-1.0); Magnesium 1.5 MG/DL (1.8-2.4); Osmolality,Calculated 306.4 MOS/KG (273-304); Potassium 3.1 MMOL/L (3.5-5.1); Total Protein 4.6 G/DL (6.4-8.3)
[2017-04-28] MEDS ORDERED: MAGNESIUM SULF RIDER 4 GM in PREMIX 1 EACH IV PRN (15:29)
[2017-04-28] MEDS ORDERED: MAGNESIUM SULF RIDER 2 GM in PREMIX 1 EACH IV PRN (15:29)
[2017-04-28 15:56] LABS: Burr Cells Few; Hypochromasia 1+; Microcytosis 1+; Ovalocytes Few; Platelet Estimate Normal; Poikilocytosis 2+; Target Cells Few
[2017-04-28 15:57] LABS: Tear Drop Cells Few
[2017-04-28] MEDS: LACTULOSE 20 GM/30 ML UDCUP PO PRN ×2 (17:48→22:01)
--- NOTE | 2017-04-28 19:07 | Nephrology Consult Note ---
History of Present Illness Chief complaint: ARF History of present illness: Ms. Aparicio is a 71 year old female admitted with encephalopathy. She has a history of endometrial cancer with metastases to liver and colon. She has had recurrent ascites and has required multiple paracentesis. Her last paracentesis was 04/22/2017 at which time 6.8 L was removed. She was admitted with a one-day history of confusion and agitation. She had Potwin for pain on the day prior to admission. Family states that her mental status has improved since admission. She was noted to have renal insufficiency at the time of this admission. She was hypotensive at the time of presentation. Renal function was normal during a previous admission in November. Home Medications Medication Instructions Recorded Confirmed Type Anastrozole 1 mg PO DAILY 10/23/16 04/27/17 History Furosemide Tab [Lasix Tab] 80 mg PO DAILY 10/23/16 04/27/17 History HYDROcodone/ACETAMIN 10-325 [Potwin 1 - 2 tablet PO Q4H PRN 10/23/16 04/27/17 History 10-325] Nebivolol HCl [Bystolic] 2.5 mg PO DAILY 12/20/16 04/27/17 History Pramoxine/Hc Rectal Foam 1 applic RECTAL TID #10 gm 04/26/17 04/27/17 Rx [Proctofoam HC Rectal Foam] Allergies Allergy/AdvReac Type Severity Reaction Status Date / Time Penicillins Allergy Mild RASH Verified 04/27/17 08:38 Medical,Surgical,& Family Hx - Medical History Cardio: History of: CHF, Hypertension, Cardiovascular Problems Psychological: History of: Depression Neurology: No history of: Seizures HEENT: History of: Eye Problem (GLASSES), HEENT Problems (SINUS) Endocrine: History of: Diabetes Mellitus (NIDDM) Respiratory: History of: Respiratory Problems (heart failure) Gastrointestinal: History of: Diverticulitis/ Diverticulosis, GERD, Hemorrhoids , Liver Problems, 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 CORADO), Miscellaneous Medical Problems (MEDIPORT TO BE PLACED 03/20/15 RT) - Surgical History Cardiac Surgeries: Patient Denies: Femoral-Popliteal Bypass Graft, Cardiac Catheterization, Cardiac Surgery, Carotid Endarterectomy, Internal Defibrillator, Vascular Access Devices Thoracic Surgeries: Patient denies;: Lobectomy HEENT Surgeries: Patient denies: Carotid Endarterectomy, Eye Surgery, Tonsilectomy & Adenoidectomy Abdominal Surgeries: Surgical HX of: Abdominal Surgery (PARTIAL REMOVAL SMALL INTESTINES 02/12/15), Colonoscopy Patient denies: Splenectomy Reproductive Surgeries: Surgical HX of;: Hysterectomy (FEBRUARY 2012), Tubal Ligation - Family History Family History: Reports;: Family Cancer (BROTHER), Family Diabetes (MOTHER/ FATHER), Family Hypertension (PARENTS) - Social History Smoking Status: Never smoker Frequency of Alcohol Use: None Type of Drug Use: None Review of Systems ROS unobtainable: due to delirium Exam - Vital Signs Vital signs: Period Temp Pulse Resp BP Sys/Golden Pulse Ox Last 24 Hr 96.8 F-98.2 F 72-82 15-22 85-126/51-68 93-99 Exam: Gen.: Arousable. Mildly confused ENT: Pupils equal round reactive to light. EOMs intact. Mucous membranes dry Neck: Supple. No JVD or bruit. Cardiovascular: Regular rate and rhythm. No murmur rub or gallop Lungs: Clear Abdomen: Soft. Nontender. Positive bowel sounds. Ascites present Extremities: Trace edema Results - Labs CBC & BMP: 04/28/17 13:58 04/28/17 14:51 Assessment and Plan (1) Acute renal failure Status: Acute Assessment and plan: 71-year-old woman with: * Endometrial cancer with intra-abdominal metastasis * Recurrent ascites * Encephalopathy. This has begun to improve * ARF. This appears to be due to intravascular volume depletion and hypotension. Antihypertensives discontinued. Recommend avoiding GOOD inhibitor in the future due to her rapidly shifting volume status. Agree with IV fluid. Potentially nephrotoxic medications have been discontinued * Hypotension * Diabetes mellitus Current Visit: Yes (2) Ascites of liver Status: Acute Current Visit: Yes (3) Endometrial cancer with metastases Status: Acute Current Visit: Yes (4) Hypotension Status: Acute Current Visit: Yes (5) Diabetes mellitus Status: Acute Current Visit: No
[2017-04-28] MEDS: HYDROCORTISONE 2.5% RECTAL CREAM 30 GM TUBE TOP PRN (22:01)
[2017-04-28] MEDS: POTASSIUM CHLORIDE 20 MEQ TABLET PO PRN (23:55)
[2017-04-29] MEDS: LACTULOSE 160 GM/240 ML BOTTLE RECTAL SCH ×5 (03:35→18:58)
[2017-04-29] MEDS: POTASSIUM CHLORIDE 20 MEQ TABLET PO PRN ×2 (03:35→05:41)
[2017-04-29] MEDS: LACTULOSE 20 GM/30 ML UDCUP PO PRN ×2 (03:35→09:00)
[2017-04-29] MEDS: SODIUM CHLORIDE 0.9% 1,000 ML IV SCH ×2 (03:36→13:54)
[2017-04-29 04:43] LABS: Eosinophils % 0.1 % (0.00-10.9); Hematocrit 22.2 VOL% (35.7-47.0); Hemoglobin 7.3 GM/DL (12.0-16.0); Immature Granulocytes % 0.7 %; Immature Granulocytes Absolute 0.06 #; Lymphocytes # 0.9 10*3/uL (1.4-4.0); Lymphocytes % 10.9 % (21.3-54.2); Mean Corpuscular HGB Conc 32.9 GM/DL (32-36); Mean Corpuscular Hemoglobin 25 PG (27-34); Mean Corpuscular Volume 75.3 FL (87-102); Mean Platelet Volume 9.5 FL (9.6-12.0); Monocytes # 0.6 10*3/uL (0.11-0.8); Monocytes % 6.5 % (1.7-12.7); Neutrophils # 6.9 10*3/uL (1.4-7.4); Neutrophils % 81.8 % (38.7-73.9); Platelet Count 367 T/CUMM (130-400); Red Blood Count 2.95 MC/CUMM (3.8-5.5); Red Cell Distribution Width 24.2 % (9.3-17.3); White Blood Count 8.4 T/CUMM (4-12)
[2017-04-29 05:18] LABS: Albumin 1.8 G/DL (3.4-5.0); Bilirubin,Direct 3.4 MG/DL (0.0-0.20); Bilirubin,Indirect 0.8 MG/DL (0.0-1.0); Bilirubin,Total 4.2 MG/DL (0.2-1.0); Calcium 7.4 MG/DL (8.5-10.1); Magnesium 2.3 MG/DL (1.8-2.4); Osmolality,Calculated 310.1 MOS/KG (273-304); Potassium 3.5 MMOL/L (3.5-5.1); Total Protein 4.7 G/DL (6.4-8.3)
[2017-04-29 05:56] LABS: Hypochromasia 1+; Target Cells Few
[2017-04-29 05:57] LABS: Burr Cells Slight; Microcytosis 1+; Ovalocytes Slight; Platelet Estimate Adequate
[2017-04-29] MEDS: INSULIN LISPRO 100 UNIT/ML SUBCUT SCH ×2 (07:53→17:16)
[2017-04-29] MEDS: PANTOPRAZOLE 40 MG VIAL IV SCH (09:00)
[2017-04-29] MEDS: PRAMOXINE/HYDROCORTISONE RECTAL FOAM 10 GM CAN RECTAL SCH ×3 (09:00→21:02)
--- NOTE | 2017-04-29 09:18 | Gastrointestinal Progress Note ---
<OliviaMelinda Jennifer - Last Filed: 04/29/17 09:14> Assessment and Plan (1) Elevated liver enzymes Status: Acute Assessment and plan: 04/29-No c/o abd pain. CT of abdomen pending today (no IV contrast). Ammonia level pending. Decrease Lactulose to q6-8 at this time to keep bowel movements at 3 daily. Plan and addendum to follow by Dr Vasquez. 04/28-changes in baseline mental status 3 days ago with increased agitation and somnolence. History of endometrial cancer with metastasis to liver per history. Findings of elevated LFTs and ammonia level. Negative hepatitis panel. Liver ultrasound findings noted. Plan an addendum to followed by Dr. Vasquez. Current Visit: Yes Gastroenterology - PN: Subj Interval history: CC: Elevated LFT Pt is seen with family at bedside. She arouses to verbal stimuli. Pt daugther states she was up all night with restless legs however found to have hypokalemia which was corrected. She has no complaints of abdominal pain, nausea or vomiting. She is for CT of abdomen this morning. Creatnine is noted at 2.5. Dr Yoo has consulted with patient. No IV contrast to be ordered with CT. Hgb also holding at 7.3 w/o reports of overt bleeding. Abdomen is soft, nontender. Ammonia level is pending this morning. Noted to have 4 bowel movements already today as well as 4 total on yesterday. Will decrease frequency of Lactulose at this time. ROS: Denies SOB or chest pain Exam (Progress Note) - Constitutional Vitals: Period Temp Pulse Resp BP Sys/Golden Pulse Ox Last 24 Hr 97.4 F-98.3 F 75-80 15-20 85-113/51-55 94-100 General appearance: normal weight, no acute distress - Head Head exam: Present: normal inspection, normocephalic - Eye Eye exam: Present: other (lids and conjunctiva unremarkable). Absent: scleral icterus - ENT ENT exam: Present: normal exam, normal oropharynx - Neck Neck exam: Present: normal inspection - Respiratory Respiratory exam: Present: clear to auscultation bilaterally. Absent: rales, rhonchi, wheezes - Cardiovascular Cardiovascular exam: Present: regular rate and rhythm. Absent: diastolic murmur , JVD, systolic murmur - GI/Abdominal GI/Abdominal exam: Present: normal bowel sounds, soft. Absent: ascites, distended, mass, organomegaly, tenderness - Extremities Exam Extremities exam: Present: normal inspection, full ROM - Back Exam Back exam: Present: normal inspection - Neurological Exam Neurological exam: Present: alert, altered - Psychiatric Psychiatric exam: Present: normal affect, normal mood - Skin Skin exam: Present: normal color, warm, dry Results - Labs CBC & BMP: 04/29/17 04:30 04/29/17 03:29 Lab Results: I have reviewed the past 24 hour labs <Lv Vasquez - Last Filed: 04/29/17 10:35> Exam (Progress Note) - Constitutional Vitals: Period Temp Pulse Resp BP Sys/Golden Pulse Ox Last 24 Hr 97.3 F-98.3 F 75-83 15-20 85-113/51-55 94-100 Results - Labs CBC & BMP: 04/29/17 04:30 04/29/17 03:29
--- NOTE | 2017-04-29 10:18 | Hospitalist Progress Note ---
Assessment and Plan (1) Acute renal failure Status: Acute Assessment and plan: Most likely secondary to dehydration IV fluids Nephrology consulted yesterday, thanks for the assistance Current Visit: Yes (2) Diabetes mellitus Status: Acute Assessment and plan: SSI Current Visit: No (3) Hepatic encephalopathy Status: Acute Assessment and plan: Lactulose Endometrial cancer with liver and colon mets, sending for outside records GI assisting Current Visit: Yes (4) Endometrial cancer with metastases Status: Acute Assessment and plan: Family reports mets to liver and colon Followed by Dr. Pa in [place], requesting records Takes Anastrazole, currently holding Oncology was consulted on admission Current Visit: Yes Hospitalist: Subjective Interval history: According to daughter, patient was awake most of the night with leg cramps. This morning patient is sleeping comfortably. She will wake up and answer some questions. Oriented to person now. Exam - Constitutional Vitals: Period Temp Pulse Resp BP Sys/Golden Pulse Ox Last 24 Hr 97.4 F-98.3 F 75-80 15-20 85-113/51-55 94-100 General appearance: over weight - Head Head exam: Present: normocephalic, atraumatic - Eye Eye exam: Present: EOMI Pupils: Present: ALTON - ENT ENT exam: Present: normal exam - Neck Neck exam: Present: normal inspection - Respiratory Respiratory exam: Present: clear to auscultation bilaterally. Absent: rhonchi, wheezes - Cardiovascular Cardiovascular exam: Present: regular rate and rhythm - GI/Abdominal GI/Abdominal exam: Present: normal bowel sounds, soft. Absent: tenderness, rebound - Extremities Exam Extremities exam: Present: normal inspection - Back Exam Back exam: Present: normal inspection - Neurological Exam Neurological exam: Present: alert - Psychiatric Psychiatric exam: Present: normal affect, normal mood - Skin Skin exam: Present: warm, intact Results - Labs CBC & BMP: 04/29/17 04:30 04/29/17 03:29
--- NOTE | 2017-04-29 13:25 | Nephrology Progress Note ---
Nephrology - PN: Subj Interval history: Mental status is slowly improving. No new symptoms Exam (PN)-Nephrology - Vital Signs Vital signs: Period Temp Pulse Resp BP Sys/Golden Pulse Ox Last 24 Hr 97.3 F-98.3 F 76-83 15-20 91-113/44-55 95-100 Exam: ENT: Normal Cardiovascular: Regular rate and rhythm. No murmur rub or gallop Lungs: Clear Extremities: 1-2+ edema - Lab 04/29/17 04:30 04/29/17 03:29 Most recent lab results Calcium 7.4 MG/DL (8.5-10.1) L 04/29/17 03:29 Magnesium 2.3 MG/DL (1.8-2.4) 04/29/17 03:29 Assessment and Plan (1) Acute renal failure Status: Acute Assessment and plan: 71-year-old woman with: * Endometrial cancer with intra-abdominal metastasis * Recurrent ascites * Encephalopathy. This has begun to improve * ARF. Creatinine is stable. * Metabolic acidosis.Bicarbonate will be added to IV fluid * Hypotension * Diabetes mellitus Current Visit: Yes (2) Ascites of liver Status: Acute Current Visit: Yes (3) Endometrial cancer with metastases Status: Acute Current Visit: Yes (4) Hypotension Status: Acute Current Visit: Yes (5) Diabetes mellitus Status: Acute Current Visit: No
--- NOTE | 2017-04-29 13:29 | CT Report ---
CT abdomen pelvis wo con Indication: Evaluation for metastatic liver disease. Comparison: CT of abdomen and pelvis 05/18/2016. Technique: CT of the abdomen and pelvis was performed without administration of intravenous contrast. The CT examination was performed using one or more of the following dose reduction techniques: Automatic exposure control, adjustment of the mA and kV according to patient size, use of acute or iterative reconstruction techniques. Findings: Evaluation of the abdominal contents is significantly limited by lack of intravenous contrast. Vascular structures, solid organs, and bowel wall cannot be completely evaluated. Mild dependent atelectasis is noted within the dependent portion of the left lung. The heart size is enlarged. No pleural effusions are present. A large amount of ascites is demonstrated throughout the abdomen. Within the lower abdomen along the peritoneal lining, there are small focal areas of soft tissue attenuation suggested measuring up to 9.5 mm along the right lateral peritoneal surface image #[id number] with additional peritoneal disease suggested along the more inferior peritoneum as best demonstrated on sagittal image #[id number]. On the left, a peritoneal implant is suggested axial image #103. This implant measures 2.5 x 4.1 cm. Additional soft tissue attenuation along the left peritoneal lining is noted image #70. This is suggestive of additional peritoneal metastatic disease. The largest of these collections measures 4.4 x 3.0 cm. The liver demonstrates multiple hypodense lesions compatible with metastatic disease. Further evaluation is not possible secondary to lack of intravenous contrast. Within the left hepatic lobe, the largest of these measures approximately 6.9 cm. Within the right hepatic lobe, the largest of these measures approximately 3.1 cm. Spleen is grossly normal in size. The pancreas cannot be identified. No bowel obstruction is suggested. Limited evaluation of bowel is present secondary to positioning as well as lack of contrast. The lumen of the aorta is somewhat hypoattenuating compared to the aortic wall suggesting possible anemia. Harrison catheter is present. Intrapelvic contents demonstrate no acute findings. Bony structures are stable. No specific evidence of osseous metastatic disease is demonstrated. Body wall edema is demonstrated. Impression: 1. Extensive peritoneal metastatic disease is demonstrated as is multiple hypoattenuating lesions of the liver compatible with hepatic metastatic disease. Further evaluation of these lesions is not possible secondary to lack of intravenous contrast. 2. A large amount of ascites is demonstrated within the abdomen and pelvis. 3. Other findings as detailed. 04/29/2017 1:19 PM PROCEDURE INTERPRETED AT [facility] DEPARTMENT OF RADIOLOGY Final Report Signed by: Dr. Rommel Geronimo
[2017-04-29] MEDS: SODIUM BICARB INJ 100 MEQ in DEXTROSE 5% 1,000 ML IV SCH (16:09)
[2017-04-29] MEDS: ENOXAPARIN 30 MG/0.3 ML SYRINGE SUBCUT SCH (16:09)
[2017-04-29] MEDS: LACTULOSE 20 GM/30 ML UDCUP PO SCH ×2 (16:10→18:58)
[2017-04-30] MEDS: LACTULOSE 160 GM/240 ML BOTTLE RECTAL SCH ×5 (01:02→14:42)
[2017-04-30] MEDS: LACTULOSE 20 GM/30 ML UDCUP PO SCH ×5 (01:02→19:16)
[2017-04-30] MEDS: SODIUM BICARB INJ 100 MEQ in DEXTROSE 5% 1,000 ML IV SCH ×2 (03:23→21:12)
[2017-04-30 06:04] LABS: Calcium 6.7 MG/DL (8.5-10.1); Magnesium 2.1 MG/DL (1.8-2.4); Osmolality,Calculated 311.4 MOS/KG (273-304); Potassium 3.4 MMOL/L (3.5-5.1)
[2017-04-30] MEDS: INSULIN LISPRO 100 UNIT/ML SUBCUT SCH ×2 (07:30→16:30)
[2017-04-30] MEDS: POTASSIUM CHLORIDE RIDER 10 MEQ in PREMIX 1 EACH IV PRN ×3 (09:11→11:30)
--- NOTE | 2017-04-30 09:14 | Gastrointestinal Progress Note ---
<OliviaMelinda Jennifer - Last Filed: 04/30/17 09:10> Assessment and Plan (1) Elevated liver enzymes Status: Acute Assessment and plan: 04/30-CT findings noted. Ammonia trending down. Start full liquid diet today. Plan an addendum to follow by Dr. Vasquez. 04/29-No c/o abd pain. CT of abdomen pending today (no IV contrast). Ammonia level pending. Decrease Lactulose to q6-8 at this time to keep bowel movements at 3 daily. Plan and addendum to follow by Dr Vasquez. 04/28-changes in baseline mental status 3 days ago with increased agitation and somnolence. History of endometrial cancer with metastasis to liver per history. Findings of elevated LFTs and ammonia level. Negative hepatitis panel. Liver ultrasound findings noted. Plan an addendum to followed by Dr. Vasquez. Current Visit: Yes Gastroenterology - PN: Subj Interval history: CC: Elevated liver enzymes Patient is seen much more awake and alert with family at bedside. Patient's family states she is much closer to her baseline mental status. She is able to answer questions appropriately and states that she is hungry and she would like to have something to eat today. She is noted to only have 1 or 2 bowel movements documented over the past 24 hours. Ammonia level is down at 78. Creatinine is continuing to rise at 3.2. Dr. Yoo is consulted with patient. Abdomen is soft, nontender. CT of abdomen findings on yesterday noted to show extensive peritoneal metastatic disease as well as multiple lesions of the liver compatible with hepatic metastasis. Spoke with Dr. Torres this morning and she is spoke with Dr. Pa on yesterday he states that patient's treatment is purely palliative at this point and he would not necessarily pursue any further treatment for the findings of the liver lesions. Dr. Torres is going to discuss CODE STATUS with patient and family today. ROS: Denies shortness of breath or chest pain Exam (Progress Note) - Constitutional Vitals: Period Temp Pulse Resp BP Sys/Golden Pulse Ox Last 24 Hr 97.0 F-98.4 F 66-77 16-20 89-124/44-65 92-97 General appearance: normal weight, no acute distress - Head Head exam: Present: normal inspection, normocephalic - Eye Eye exam: Present: other (Lids and conjunctive are unremarkable). Absent: scleral icterus - ENT ENT exam: Present: normal exam, normal oropharynx - Neck Neck exam: Present: normal inspection - Respiratory Respiratory exam: Present: clear to auscultation bilaterally. Absent: rales, rhonchi, wheezes, other - Cardiovascular Cardiovascular exam: Present: regular rate and rhythm. Absent: diastolic murmur , JVD, systolic murmur - GI/Abdominal GI/Abdominal exam: Present: normal bowel sounds, soft. Absent: ascites, distended, mass, organomegaly, tenderness - Extremities Exam Extremities exam: Present: normal inspection, full ROM - Back Exam Back exam: Present: normal inspection - Neurological Exam Neurological exam: Present: alert, oriented X3 - Psychiatric Psychiatric exam: Present: normal affect, normal mood - Skin Skin exam: Present: normal color, warm, dry Results - Labs CBC & BMP: 04/29/17 04:30 04/30/17 05:05 Lab Results: I have reviewed the past 24 hour labs <Lv Vasquez - Last Filed: 04/30/17 10:28> Exam (Progress Note) - Constitutional Vitals: Period Temp Pulse Resp BP Sys/Golden Pulse Ox Last 24 Hr 97.0 F-98.4 F 66-77 16-20 89-124/44-65 92-97 Results - Labs CBC & BMP: 04/29/17 04:30 04/30/17 05:05
[2017-04-30] MEDS: PANTOPRAZOLE 40 MG VIAL IV SCH (10:21)
[2017-04-30] MEDS: ANASTROZOLE 1 MG TABLET PO SCH (10:21)
--- NOTE | 2017-04-30 11:33 | Hospitalist Progress Note ---
Assessment and Plan (1) Acute renal failure Status: Acute Assessment and plan: Most likely secondary to dehydration IV fluids with bicarb Bicarb a little better, creatinine a little worse Nephrology assisting Current Visit: Yes (2) Diabetes mellitus Status: Acute Assessment and plan: SSI Current Visit: No (3) Hepatic encephalopathy Status: Acute Assessment and plan: Lactulose Endometrial cancer with liver and colon mets, sending for outside records GI assisting Improving Current Visit: Yes (4) Endometrial cancer with metastases Status: Acute Assessment and plan: Family reports mets to liver and colon Followed by Dr. Pa in [place] Takes Anastrazole, restarted yesterday Current Visit: Yes Hospitalist: Subjective Interval history: No acute events overnight. Patient is much more awake today. She is hungry and wants to eat. Spoke with Dr. Pa, her oncologist, yesterday. He reports that she does have endometrial cancer with mets to her peritoneum, he was unaware of mets to her actual liver. He has been treating her pallatively with anastrazole. As a result he was no longer checking ct scans on her. He was ok with restarting the anastrazole. He also reported that for her anemia, he has given her iv iron in the past with very little effect. I had a long discussion with patient's daughter, Nubia, today about the patient's overall poor prognosis. I also discussed the possibility of hospice in the near future. She reports that the patient in the past requested to be a full code and wanted to have everything done to stay alive. Exam - Constitutional Vitals: Period Temp Pulse Resp BP Sys/Golden Pulse Ox Last 24 Hr 97.0 F-98.4 F 66-77 16-20 89-124/44-65 92-97 General appearance: over weight - Head Head exam: Present: normocephalic, atraumatic - Eye Eye exam: Present: EOMI Pupils: Present: ALTON - ENT ENT exam: Present: normal exam - Neck Neck exam: Present: normal inspection - Respiratory Respiratory exam: Present: clear to auscultation bilaterally. Absent: wheezes - Cardiovascular Cardiovascular exam: Present: regular rate and rhythm - GI/Abdominal GI/Abdominal exam: Present: normal bowel sounds, soft. Absent: tenderness, rebound - Extremities Exam Extremities exam: Present: normal inspection - Back Exam Back exam: Present: normal inspection - Neurological Exam Neurological exam: Present: alert - Psychiatric Psychiatric exam: Present: normal affect, normal mood - Skin Skin exam: Present: warm, intact Results - Labs CBC & BMP: 04/29/17 04:30 04/30/17 05:05
--- NOTE | 2017-04-30 12:28 | Nephrology Progress Note ---
Nephrology - PN: Subj Interval history: She is alert and oriented today. She denies shortness of breath or pain. Exam (PN)-Nephrology - Vital Signs Vital signs: Period Temp Pulse Resp BP Sys/Golden Pulse Ox Last 24 Hr 97.0 F-98.4 F 66-77 16-20 89-124/50-65 92-97 Exam: Gen.: Alert and oriented x3. ENT: Pupils equal round reactive to light. EOMs intact. Mucous membranes moist. Neck: Supple. No JVD or bruit. Cardiovascular: Regular rate and rhythm. No murmur rub or gallop Lungs: Clear Abdomen: Soft. Nontender. Ascites present Extremities: 1+ edema - Lab 04/29/17 04:30 04/30/17 05:05 Most recent lab results Calcium 6.7 MG/DL (8.5-10.1) L 04/30/17 05:05 Magnesium 2.1 MG/DL (1.8-2.4) 04/30/17 05:05 Assessment and Plan (1) Acute renal failure Status: Acute Assessment and plan: 71-year-old woman with: * Endometrial cancer with intra-abdominal metastasis * Recurrent ascites * Encephalopathy. This has begun to improve * ARF. Creatinine is higher today. Serum albumin is very low. IV albumin ordered * Metabolic acidosis. Slightly better with IV bicarb * Hypotension improved * Diabetes mellitus Current Visit: Yes (2) Ascites of liver Status: Acute Current Visit: Yes (3) Endometrial cancer with metastases Status: Acute Current Visit: Yes (4) Hypotension Status: Acute Current Visit: Yes (5) Diabetes mellitus Status: Acute Current Visit: No
[2017-04-30] MEDS ORDERED: ALBUMIN 25% 25 GM in PREMIX 1 EACH IV ONE (13:00)
[2017-04-30] MEDS: PRAMOXINE/HYDROCORTISONE RECTAL FOAM 10 GM CAN RECTAL SCH ×3 (14:03→21:13)
[2017-04-30] MEDS: ENOXAPARIN 30 MG/0.3 ML SYRINGE SUBCUT SCH (15:42)
[2017-05-01] MEDS: LACTULOSE 20 GM/30 ML UDCUP PO SCH ×5 (00:41→18:21)
[2017-05-01 05:40] LABS: Eosinophils % 0.5 % (0.00-10.9); Immature Granulocytes % 1.6 %; Immature Granulocytes Absolute 0.13 #; Lymphocytes % 12.8 % (21.3-54.2); Mean Corpuscular HGB Conc 32.8 GM/DL (32-36); Mean Corpuscular Hemoglobin 24 PG (27-34); Mean Corpuscular Volume 74.4 FL (87-102); Mean Platelet Volume 9.8 FL (9.6-12.0); Monocytes # 0.7 10*3/uL (0.11-0.8); Monocytes % 8.1 % (1.7-12.7); NRBC # 0.03 10*3/uL; Neutrophils # 6.3 10*3/uL (1.4-7.4); Platelet Count 261 T/CUMM (130-400); Red Blood Count 2.38 MC/CUMM (3.8-5.5); Red Cell Distribution Width 24.7 % (9.3-17.3); White Blood Count 8.1 T/CUMM (4-12)
[2017-05-01 05:51] LABS: Hematocrit 17.7 VOL% (35.7-47.0); Hemoglobin 5.8 GM/DL (12.0-16.0)
[2017-05-01] MEDS ORDERED: SODIUM CHLORIDE 0.9% 250 ML IV PRN (06:06)
[2017-05-01 06:08] LABS: Burr Cells Slight; Hypochromasia 1+; Ovalocytes Slight; Platelet Estimate Adequate
[2017-05-01 06:09] LABS: Microcytosis 1+
[2017-05-01 06:13] LABS: Calcium 6.9 MG/DL (8.5-10.1); Magnesium 1.8 MG/DL (1.8-2.4); Osmolality,Calculated 301.8 MOS/KG (273-304); Potassium 3.1 MMOL/L (3.5-5.1)
[2017-05-01] MEDS: SODIUM BICARB INJ 100 MEQ in DEXTROSE 5% 1,000 ML IV SCH ×3 (07:15→20:14)
[2017-05-01] MEDS: INSULIN LISPRO 100 UNIT/ML SUBCUT SCH ×2 (09:05→17:11)
[2017-05-01] MEDS: ANASTROZOLE 1 MG TABLET PO SCH (09:05)
[2017-05-01] MEDS: PANTOPRAZOLE 40 MG VIAL IV SCH (09:06)
[2017-05-01] MEDS: POTASSIUM CHLORIDE RIDER 20 MEQ in PREMIX 1 EACH IV SCH ×2 (10:00→12:38)
[2017-05-01] MEDS: PRAMOXINE/HYDROCORTISONE RECTAL FOAM 10 GM CAN RECTAL SCH ×3 (10:02→20:13)
[2017-05-01] MEDS ORDERED: MAGNESIUM SULF RIDER 2 GM in PREMIX 1 EACH IV ONE (13:00)
--- NOTE | 2017-05-01 13:20 | Nephrology Progress Note ---
Nephrology - PN: Subj Interval history: CT scan reveals metastatic involvement of liver. Per GI no further treatment available. Prognosis poor. Hgb 5.8. Creatinine 3.5. Albumin 1.8. K 3.1. Exam (PN)-Nephrology - Vital Signs Vital signs: Period Temp Pulse Resp BP Sys/Golden Pulse Ox Last 24 Hr 97.4 F-98.2 F 71-97 16-20 90-140/45-62 92-98 - General Appearance General appearance: well-developed, chronically ill EENT: ATNC, PERRL, mucous membranes dry, hearing intact, vision intact Neck: no JVD, no thyromegaly Respiratory: no kyphosis, rales Cardiology: no murmurs, no rub Gastrointestinal: hypoactive bowel sounds, no masses Integumentary: no rash, warm and dry Neurologic: no focal deficit, no asterixis Musculoskeletal: no deformities, no erythema - Lab 05/01/17 04:15 05/01/17 04:15 Most recent lab results Calcium 6.9 MG/DL (8.5-10.1) L 05/01/17 04:15 Magnesium 1.8 MG/DL (1.8-2.4) 05/01/17 04:15 Assessment and Plan (1) Acute renal injury due to hypovolemia Problem details: Not a candidate for chronic hemodialysis due to terminal untreatable dz and poor predicted one year survival. Status: Acute Assessment and plan: Consider hospice. Current Visit: Yes (2) Endometrial cancer with metastases Status: Acute Current Visit: Yes (3) Diabetes mellitus Status: Acute Current Visit: No (4) Ascites of liver Status: Acute Current Visit: Yes
--- NOTE | 2017-05-01 14:10 | Hospitalist Progress Note ---
Assessment and Plan (1) Acute renal failure Status: Acute Assessment and plan: Most likely secondary to dehydration IV fluids with bicarb Nephrology assisting Continues to worsen Current Visit: Yes (2) Diabetes mellitus Status: Acute Assessment and plan: SSI Current Visit: No (3) Hepatic encephalopathy Status: Acute Assessment and plan: Lactulose Endometrial cancer with liver and colon mets GI assisting Improving Current Visit: Yes (4) Endometrial cancer with metastases Status: Acute Assessment and plan: Family reports mets to liver and colon Followed by Dr. Pa in [place] Takes Anastrazole, restarted yesterday Disease has worsened since her last scan Current Visit: Yes Hospitalist: Subjective Interval history: No acute events overnight. Patient is alert and oriented x3. Her hemoglobin continues to drop. 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 Her renal function continues to decline. Exam - Constitutional Vitals: Period Temp Pulse Resp BP Sys/Golden Pulse Ox Last 24 Hr 97.4 F-98.2 F 71-97 16-20 90-140/45-62 92-98 General appearance: over weight - Head Head exam: Present: normocephalic, atraumatic - Eye Eye exam: Present: EOMI Pupils: Present: ALTON - ENT ENT exam: Present: normal exam - Neck Neck exam: Present: normal inspection - Respiratory Respiratory exam: Present: clear to auscultation bilaterally. Absent: rhonchi, wheezes - Cardiovascular Cardiovascular exam: Present: regular rate and rhythm - GI/Abdominal GI/Abdominal exam: Present: normal bowel sounds, soft. Absent: tenderness, rebound - Extremities Exam Extremities exam: Present: normal inspection - Back Exam Back exam: Present: normal inspection - Neurological Exam Neurological exam: Present: alert, oriented X3 - Psychiatric Psychiatric exam: Present: normal affect, normal mood - Skin Skin exam: Present: warm, intact Results - Labs CBC & BMP: 05/01/17 04:15 05/01/17 04:15
[2017-05-01] MEDS: POTASSIUM CHLORIDE RIDER 20 MEQ in PREMIX 1 EACH IV PRN (17:20)
[2017-05-01] MEDS: DESITIN 4OZ/NYSTATIN 15 GRAM MIXTURE PASTE TOP SCH (20:12)
[2017-05-02] MEDS: LACTULOSE 20 GM/30 ML UDCUP PO SCH ×5 (01:08→23:45)
[2017-05-02] MEDS: SODIUM BICARB INJ 100 MEQ in DEXTROSE 5% 1,000 ML IV SCH ×3 (01:08→23:44)
[2017-05-02 06:42] LABS: Calcium 6.6 MG/DL (8.5-10.1); Osmolality,Calculated 296.4 MOS/KG (273-304); Potassium 3.5 MMOL/L (3.5-5.1)
[2017-05-02] MEDS: ANASTROZOLE 1 MG TABLET PO SCH (09:10)
[2017-05-02] MEDS: INSULIN LISPRO 100 UNIT/ML SUBCUT SCH ×2 (09:10→17:28)
[2017-05-02] MEDS: PANTOPRAZOLE 40 MG VIAL IV SCH (09:11)
[2017-05-02] MEDS: PRAMOXINE/HYDROCORTISONE RECTAL FOAM 10 GM CAN RECTAL SCH ×3 (09:11→22:44)
[2017-05-02] MEDS: DESITIN 4OZ/NYSTATIN 15 GRAM MIXTURE PASTE TOP SCH ×2 (09:11→22:44)
[2017-05-02] MEDS ORDERED: EPOETIN ALFA 10,000 UNIT/1 ML VIAL SUBCUT ONE (10:18)
--- NOTE | 2017-05-02 10:29 | Hospitalist Progress Note ---
Assessment and Plan (1) Acute renal failure Status: Acute Assessment and plan: IV fluids with bicarb Nephrology assisting Creatinine relatively stable today Current Visit: Yes (2) Diabetes mellitus Status: Acute Assessment and plan: SSI Current Visit: No (3) Hepatic encephalopathy Status: Acute Assessment and plan: Lactulose Endometrial cancer with liver and colon mets GI signed off, liver disease is due to progression of her cancer. Improving Current Visit: Yes (4) Endometrial cancer with metastases Status: Acute Assessment and plan: Family reports mets to liver and colon Followed by Dr. Pa in [place] Takes Anastrazole, restarted yesterday Disease has worsened since her last scan Current Visit: Yes (5) Anemia Status: Acute Assessment and plan: H/H dropping Patient is a [employer] and refuses blood products Will give a dose of epo today Current Visit: No Hospitalist: Subjective Interval history: No acute events overnight. Patient is awake and alert. Follow-up discussion with patient's daughter today about patient's poor prognosis. The family would still like the patient to be full code with everything being done. But she says that the family has decided to go home with hospice at discharge. Exam - Constitutional Vitals: Period Temp Pulse Resp BP Sys/Golden Pulse Ox Last 24 Hr 98 F-98.2 F 73-85 18-20 92-106/47-55 94-97 General appearance: over weight - Head Head exam: Present: normocephalic, atraumatic - Eye Eye exam: Present: EOMI Pupils: Present: ALTON - ENT ENT exam: Present: normal exam - Neck Neck exam: Present: normal inspection - Respiratory Respiratory exam: Present: clear to auscultation bilaterally - Cardiovascular Cardiovascular exam: Present: regular rate and rhythm - GI/Abdominal GI/Abdominal exam: Present: normal bowel sounds, soft. Absent: tenderness, rebound - Extremities Exam Extremities exam: Present: normal inspection - Back Exam Back exam: Present: normal inspection - Neurological Exam Neurological exam: Present: alert, oriented X3 - Psychiatric Psychiatric exam: Present: normal affect, normal mood - Skin Skin exam: Present: warm, intact Results - Labs CBC & BMP: 05/01/17 04:15 05/02/17 04:15
--- NOTE | 2017-05-02 13:35 | Nephrology Progress Note ---
Nephrology - PN: Subj Interval history: Creatinine improved. No acute oveernight events per nursing staff. Stage 4 Ca c mets. Exam (PN)-Nephrology - Vital Signs Vital signs: Period Temp Pulse Resp BP Sys/Golden Pulse Ox Last 24 Hr 98 F-98.5 F 71-85 18-20 92-106/46-55 94-97 Exam: Pt not examined. - Lab 05/01/17 04:15 05/02/17 04:15 Most recent lab results Calcium 6.6 MG/DL (8.5-10.1) L 05/02/17 04:15 Magnesium 1.8 MG/DL (1.8-2.4) 05/01/17 04:15 Assessment and Plan - Time spent with patient Time spent discussing smoking cessation with patient: 3 to 10 minutes (1) Acute renal injury due to hypovolemia Problem details: Not a candidate for chronic hemodialysis due to terminal untreatable dz and poor predicted one year survival. Status: Acute Assessment and plan: End of life care. Current Visit: Yes (2) Endometrial cancer with metastases Status: Acute Assessment and plan: Terminal. End of life care. Current Visit: Yes (3) Diabetes mellitus Status: Acute Current Visit: No (4) Ascites of liver Status: Acute Current Visit: Yes
[2017-05-03 06:16] LABS: Hematocrit 18.8 VOL% (35.7-47.0)
[2017-05-03 06:36] LABS: Hemoglobin 6.2 GM/DL (12.0-16.0)
[2017-05-03] MEDS: LACTULOSE 20 GM/30 ML UDCUP PO SCH ×3 (06:36→17:34)
[2017-05-03 06:50] LABS: Calcium 6.7 MG/DL (8.5-10.1); Magnesium 2.2 MG/DL (1.8-2.4); Osmolality,Calculated 291.7 MOS/KG (273-304)
[2017-05-03] MEDS: SODIUM BICARB INJ 100 MEQ in DEXTROSE 5% 1,000 ML IV SCH (06:59)
[2017-05-03] MEDS: POTASSIUM CHLORIDE RIDER 20 MEQ in PREMIX 1 EACH IV PRN (07:10)
[2017-05-03] MEDS: INSULIN LISPRO 100 UNIT/ML SUBCUT SCH ×2 (08:05→17:35)
[2017-05-03] MEDS: ANASTROZOLE 1 MG TABLET PO SCH (10:31)
[2017-05-03] MEDS: PANTOPRAZOLE 40 MG VIAL IV SCH (10:31)
[2017-05-03] MEDS: DESITIN 4OZ/NYSTATIN 15 GRAM MIXTURE PASTE TOP SCH ×2 (10:31→20:50)
[2017-05-03] MEDS: PRAMOXINE/HYDROCORTISONE RECTAL FOAM 10 GM CAN RECTAL SCH ×3 (10:32→20:51)
--- NOTE | 2017-05-03 12:51 | Hospitalist Progress Note ---
Assessment and Plan (1) Acute renal failure Status: Acute Assessment and plan: IV fluids with bicarb Nephrology assisting Creatinine relatively stable today Current Visit: Yes (2) Diabetes mellitus Status: Acute Assessment and plan: SSI Current Visit: No (3) Hepatic encephalopathy Status: Acute Assessment and plan: Lactulose Endometrial cancer with liver and colon mets GI signed off, liver disease is due to progression of her cancer. Improving Current Visit: Yes (4) Endometrial cancer with metastases Status: Acute Assessment and plan: Family reports mets to liver and colon Followed by Dr. Pa in [place] Takes Anastrazole, restarted Disease has worsened since her last scan Current Visit: Yes (5) Anemia Status: Acute Assessment and plan: H/H stable today Patient is a [employer] and refuses blood products Current Visit: No Hospitalist: Subjective Interval history: No acute events overnight. Mental status remains improved. Worked with physical therapy today. H/H and creatinine slightly better today. Patient and family report increase in abdominal distension. This is the week for her scheduled paracentesis. Will plan for paracentesis today. Family members were interested in trying epo, ordered it yesterday, but family changed their minds once hearing all of the side effects. She will be discharged tomorrow with home hospice. Exam - Constitutional Vitals: Period Temp Pulse Resp BP Sys/Golden Pulse Ox Last 24 Hr 97.7 F-98.3 F 76-81 18-20 86-94/45-54 94-100 General appearance: over weight - Head Head exam: Present: normocephalic, atraumatic - Eye Eye exam: Present: EOMI Pupils: Present: ALTON - ENT ENT exam: Present: normal exam - Neck Neck exam: Present: normal inspection - Respiratory Respiratory exam: Present: clear to auscultation bilaterally. Absent: rhonchi, wheezes - Cardiovascular Cardiovascular exam: Present: regular rate and rhythm - GI/Abdominal GI/Abdominal exam: Present: normal bowel sounds, soft. Absent: tenderness, rebound - Extremities Exam Extremities exam: Present: normal inspection - Back Exam Back exam: Present: normal inspection - Neurological Exam Neurological exam: Present: alert, oriented X3 - Psychiatric Psychiatric exam: Present: normal affect, normal mood - Skin Skin exam: Present: warm, intact Results - Labs CBC & BMP: 05/03/17 05:48 05/03/17 05:47
--- NOTE | 2017-05-03 15:10 | Post Interventional Procedure ---
Pre-op diagnosis: recurrent ascites, abdominal swelling, cancer spread to peritoneal cavity Post-op diagnosis: same Procedure: u/s guided therapeutic paracentesis Contrast: none Flouroscopy: none Radiologist: Beau Miller Anesthesia: local Specimens: none sent Estimated blood loss: none Complications: none Condition: stable Description/Findings: 5500 serosanguinous fluid removed with no issues. Given the multiple recurrent large volume paracenteses and peritoneal metastatic disease, this patient would be an acceptable candidate for a tunneled peritoneal drain. Assessment and Plan - Time spent with patient Time spent with patient: Less than 30 minutes (1) Ascites of liver Problem details: Should this patient have a tunneled peritoneal drain placed? Status: Acute Current Visit: Yes
--- NOTE | 2017-05-03 15:26 | Ultrasound Report ---
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 Physician: Dr. Miller. Procedure: Informed consent was obtained prior to procedure. A formal timeout was performed. Maximum sterile barrier technique was used. The right lower quadrant was prepped and draped in sterile fashion. Under sonographic guidance, a 6 Croatian safety centesis catheter and needle were advanced into the ascites using trocar technique. A captured sonographic image documents needle position. The needle was removed. Through the catheter, we obtained a total of 5500 cc of slightly bloody ascites. No additional fluid could be obtained. Therefore, the catheter was removed. A bandage was placed at the puncture site. The patient tolerated the procedure well. Complications: None. Estimated blood loss: Less than 5 mL. Impression: Technically successful ultrasound guided paracentesis. Given the history of peritoneal metastatic disease and recurrent ascites, this patient may benefit from a tunneled peritoneal drain. PROCEDURE INTERPRETED AT [facility] DEPARTMENT OF RADIOLOGY Final Report Signed by: Beau Miller
--- NOTE | 2017-05-03 23:52 | Nephrology Progress Note ---
Nephrology - PN: Subj Interval history: She is easily arousable. She denies shortness of breath or pain. Exam (PN)-Nephrology - Vital Signs Vital signs: Period Temp Pulse Resp BP Sys/Golden Pulse Ox Last 24 Hr 97.4 F-98.7 F 75-81 16-20 87-113/50-66 92-100 Exam: ENT: Normal Cardiovascular: Regular rate and rhythm. No murmur rub or gallop Lungs: Clear Abdomen: Ascites present Extremities: 1+ edema - Lab 05/03/17 05:48 05/03/17 05:47 Most recent lab results Calcium 6.7 MG/DL (8.5-10.1) L 05/03/17 05:47 Magnesium 2.2 MG/DL (1.8-2.4) 05/03/17 05:47 Assessment and Plan (1) Acute renal failure Status: Acute Assessment and plan: 71-year-old woman with: * Endometrial cancer with intra-abdominal metastasis * Recurrent ascites. Paracentesis today * Encephalopathy. Resolved * ARF. Renal function improving slowly * Metabolic acidosis. Slightly better with IV bicarb * Hypotension improved * Diabetes mellitus Current Visit: Yes (2) Ascites of liver Problem details: Should this patient have a tunneled peritoneal drain placed? Status: Acute Current Visit: Yes (3) Endometrial cancer with metastases Status: Acute Current Visit: Yes (4) Hypotension Status: Acute Current Visit: Yes (5) Diabetes mellitus Status: Acute Current Visit: No
[2017-05-04] MEDS: LACTULOSE 20 GM/30 ML UDCUP PO SCH ×2 (00:12→06:09)
[2017-05-04] MEDS: SODIUM BICARB INJ 100 MEQ in DEXTROSE 5% 1,000 ML IV SCH (09:12)
[2017-05-04] MEDS: ANASTROZOLE 1 MG TABLET PO SCH (09:13)
[2017-05-04] MEDS: INSULIN LISPRO 100 UNIT/ML SUBCUT SCH (09:13)
[2017-05-04] MEDS: PANTOPRAZOLE 40 MG VIAL IV SCH (09:14)
[2017-05-04] MEDS: PRAMOXINE/HYDROCORTISONE RECTAL FOAM 10 GM CAN RECTAL SCH (09:14)
[2017-05-04] MEDS: DESITIN 4OZ/NYSTATIN 15 GRAM MIXTURE PASTE TOP SCH (09:14)
--- NOTE | 2017-05-04 11:09 | Discharge Summary ---
Hospital Course - Hospital Course Hospital Course: Ms. Aparicio is a 71 year old Denominational female with history of diastolic heart failure, diabetes, endometrial cancer with metastases to the liver and colon, and hypertension presenting to the ED by her daughters with a 2 day history of progressive confusion. Daughter stated she started acting sleepy and talking out of her head starting on Wednesday. She had complaints of pain from her hemorrhoids and she was given some Monrovia the prior evening around 1:00 and they state she has not been the same since. She received Narcan in the ED which did nothing to help with her mental status. Daughter stated she normally walks with a walker, cooks and cleans for herself and is normally conversive. She has not eaten or drank anything since Wednesday morning. She is undergoing chemo with p.o. medicines. Dr. Pa follows her monthly and she has a [employer] oncologist in [place] that follows her as well. Dr. Garcia's nurse practitioner is her PCP. Upon exam patient was sleepy and became agitated when awakened. She will not answer questions and will not follow commands. Daughter stated this is highly unusual for her. Her blood pressure is low with systolic in the 70s and her heart rate is within normal limits. Harrison was placed in the ED and her urine is dark with low urine output. Her white count is normal, H&H 8.3/25.5, platelets are normal, creatinine is elevated at 2.6. Her creatinine was normal with her last admission in November. Patient's liver enzymes are elevated with her bilirubin at 2.9, alkaline phosphatase elevated at 991, her ammonia level is 115, and her UA is negative for infection. She does have positive opiates in her toxicology screen but this is normal for her prescription Monrovia from yesterday. Patient does undergo paracentesis about every 2 weeks by interventional radiology. Her last one was done on 04/22/[address] Duckworth obtained a total of 6800 cc of serosanguineous ascites. She was admitted to the hospitalist service for janet, liver failure and hepatic encephalopathy. She was started on lactulose. GI was consulted for assistance ruling out other possible causes of liver disease. Her renal function continued to worsen after IV hydration, nephrology was consulted. She was started on IV fluids with bicarb. Her mental status gradually started to improve. CT A/P consistent with metastatic disease to her liver. It was felt that her liver disease was due to progression of her cancer. Her renal function very slowly has started to show some improvement. Her hospital course was complicated by acute on chronic anemia. Patient is a [employer]an and refused blood products. She also underwent a paracentesis 05/03/17 with 5.5 liters removed. During admission I spoke with Dr. Pa, her oncologist, informed that patient is on palliative therapy for terminal cancer not amendable to treatment. Long discussion with patient and her family about the patient's poor prognosis, the decision was made for patient to be put on hospice. She will now be discharged to home with home hospice services. - Time spent with patient Time with patient DS: Less than 30 minutes Diagnosis - Discharge Diagnosis (1) Acute renal failure Status: Acute (2) Diabetes mellitus Status: Chronic (3) Hepatic encephalopathy Status: Resolved (4) Endometrial cancer with metastases Status: Chronic (5) Anemia Status: Chronic Discharge Plan - Discharge Data Disposition: Hospice - Home Condition at Discharge: Guarded Discharge Diet: advance to your usual diet Activity: increase activity as tolerated Hygiene: no restrictions Weight Bearing at Discharge: weight bear as tolerated - Discharge Medications New Anastrozole [Arimidex] 1 mg PO DAILY tablet Lactulose Liquid [Chronulac] 20 gm PO Q6HR PRN #120 ml PRN Reason: Constipation Continue HYDROcodone/ACETAMIN 10-325 [[place]rovia 10-325] 1 - 2 tablet PO Q4H PRN #120 tablet PRN Reason: Pain Discontinued Furosemide Tab [Lasix Tab] 80 mg PO DAILY Anastrozole 1 mg PO DAILY Nebivolol HCl [Bystolic] 2.5 mg PO DAILY No Action Pramoxine/Hc Rectal Foam [Proctofoam HC Rectal Foam] 1 applic RECTAL TID #10 gm - Follow Up or Referral - Forms/Instructions Exam - Constitutional Vitals: Period Temp Pulse Resp BP Sys/Golden Pulse Ox Last 24 Hr 97.2 F-98.7 F 75-81 16-20 87-113/52-66 92-100 General appearance: over weight - Head Head exam: Present: normocephalic, atraumatic - Eye Eye exam: Present: EOMI Pupils: Present: ALTON - ENT ENT exam: Present: normal exam - Neck Neck exam: Present: normal inspection - Respiratory Respiratory exam: Present: clear to auscultation bilaterally. Absent: rhonchi, wheezes - Cardiovascular Cardiovascular exam: Present: regular rate and rhythm - GI/Abdominal GI/Abdominal exam: Present: normal bowel sounds, soft. Absent: tenderness, rebound - Extremities Exam Extremities exam: Present: normal inspection - Back Exam Back exam: Present: normal inspection - Neurological Exam Neurological exam: Present: alert, oriented X3 - Psychiatric Psychiatric exam: Present: normal affect, normal mood - Skin Skin exam: Present: warm, intact Discharge Results Labs on day of discharge: Labs from last 24 hours 05/04/17 05/03/17 05/03/17 07:59 20:50 16:02 POC Glucose 172 H 180 H 186 H DS: Provider Date of admission: 04/27/17 10:50 Primary care physician: Ray Pa MD Attending physician on admission: Seamus Torres MD Consults: 04/27/17 13:39 Consult to Physician [CONS] Routine Comment: liver failure, endo cancer with mets to liver/colo Consulting Provider: Marquis Hatch Consulting Provider Notified: Yes When should Consulting Provider be notified: Now Consult to Specialist Group: Oncology When should Consulting Provider be notified: Now Person Notified: BALAJI Date Notified: 04/27/17 Time Notified: 14:16 04/27/17 13:58 Consult to Dietitian [CONS] Routine Reason for Dietitian: Diet Recommendations 04/28/17 08:01 Consult to Physician [CONS] Routine Comment: hepatic enceph, endo ca with liver mets Consulting Provider: Lv Vasquez 04/28/17 15:26 Consult to Physician [CONS] Routine Comment: acute renal failure, hepatic encephalopathy Consulting Provider: Ray Yoo Consulting Provider Notified: Yes When should Consulting Provider be notified: Now Consult to Specialist Group: Nephrology When should Consulting Provider be notified: Now Person Notified: ALEJA Date Notified: 04/28/17 Time Notified: 15:47 04/29/17 10:58 Consult to Case Mgmt/Social Srvs [CONS] Routine Reason for Case Mgmt/Social Srvs: Hospice Referral Home Health Equipment Consult Comment: Needs a bedside commode. 05/02/17 10:14 Consult to Occupational Therapy [CONS] Routine Reason for Occupational Therapy: Evaluate and Treat Consult to Physical Therapy [CONS] Routine Reason for Physical Therapy: Evaluate and Treat Discharging clinician: Seamus Torres MD
[2017-05-04] MEDS ORDERED: HEPARIN LOCK FLUSH 500 UNIT/5 ML SYRINGE IV ONE (13:08)
[2017-05-04 14:17] VITALS: BP 96/56
--- NOTE | 2017-05-04 19:18 | Nephrology Progress Note ---
Nephrology - PN: Subj Interval history: She denies shortness of breath. No new symptoms Exam (PN)-Nephrology - Vital Signs Vital signs: Period Temp Pulse Resp BP Sys/Golden Pulse Ox Last 24 Hr 97.2 F-97.8 F 79-88 18-20 92-102/53-57 94-100 Exam: ENT: Normal Cardiovascular: Regular rate and rhythm. No murmur rub or gallop Lungs: Clear Abdomen: Ascites Extremities: 1+ edema - Lab 05/03/17 05:48 05/03/17 05:47 Most recent lab results Calcium 6.7 MG/DL (8.5-10.1) L 05/03/17 05:47 Magnesium 2.2 MG/DL (1.8-2.4) 05/03/17 05:47 Assessment and Plan (1) Acute renal failure Status: Acute Assessment and plan: 71-year-old woman with: * Endometrial cancer with intra-abdominal metastasis * Recurrent ascites. * Encephalopathy. Resolved * ARF. Renal function improving slowly * Metabolic acidosis. Slightly better with IV bicarb * Hypotension improved * Diabetes mellitus (2) Ascites of liver Problem details: Should this patient have a tunneled peritoneal drain placed? Status: Acute (3) Endometrial cancer with metastases Status: Chronic (4) Hypotension Status: Acute (5) Diabetes mellitus Status: Chronic
== END 2017-05-04 14:28 | disposition hospice, home (50) | DRG 442 ==
LOC: EDUNIT# → EDBD → N.ED 08:22 → N.EDINP 10:50 → N.4E 12:27
PROVIDERS: ADMIT Internal Medicine; ATTEND Internal Medicine